=== PATIENT | female | born 1965 | race African-American/Black ===

== ENCOUNTER 2020-04-11 16:13 | Observation (INO) ==
[2020-04-11 16:59] LABS: Basophils % 0.2 % (0.0-0.8); Eosinophils # 0.1 10*3/uL (0.0-0.87); Hematocrit 36.7 VOL% (35.7-47.0); Hemoglobin 12.5 GM/DL (12.0-16.0); Immature Granulocytes % 0.6 %; Immature Granulocytes Absolute 0.05 #; Lymphocytes # 2.1 10*3/uL (1.4-4.0); Lymphocytes % 24.9 % (21.3-54.2); Mean Corpuscular HGB Conc 34.1 GM/DL (32-36); Mean Platelet Volume 10.6 FL (9.6-12.0); Monocytes % 6.8 % (1.7-12.7); Neutrophils % 66.5 % (38.7-73.9); Platelet Count 208 T/CUMM (130-400); Red Blood Count 4.17 MC/CUMM (3.8-5.5); Red Cell Distribution Width 13.7 % (9.3-17.3); White Blood Count 8.6 T/CUMM (4-12)
[2020-04-11 17:10] LABS: Calcium 9.8 MG/DL (8.5-10.1); Osmolality,Calculated 276.7 MOS/KG (273-304)
[2020-04-11] MEDS ORDERED: ENOXAPARIN 30 MG/0.3 ML SYRINGE SUBCUT STA (18:49)
[2020-04-11] MEDS ORDERED: ENOXAPARIN 80 MG/0.8 ML SYRINGE SUBCUT STA (18:52)
[2020-04-11] MEDS ORDERED: DOCUSATE SODIUM 100 MG CAPSULE PO PRN (19:44)
[2020-04-11] MEDS ORDERED: SIMETHICONE CHEW 125 MG TABLET PO PRN (19:44)
[2020-04-11] MEDS ORDERED: guaiFENesin/DM ER 600-30 MG TABLET PO PRN (19:44)
[2020-04-11] MEDS ORDERED: hydrALAZINE 20 MG/1 ML VIAL IV PRN (19:44)
[2020-04-11] MEDS ORDERED: ZALEPLON 5 MG CAPSULE PO PRN (19:44)
[2020-04-11] MEDS ORDERED: NICOTINE 21 MG/24 HR PATCH TRANSDERM PRN (19:44)
[2020-04-11] MEDS ORDERED: diphenhydrAMINE CAP 25 MG CAPSULE PO PRN (19:44)
[2020-04-11] MEDS ORDERED: DEXTROSE 50% 25 GM/50 ML VIAL IV PRN ×2 (19:44)
[2020-04-11] MEDS ORDERED: ALUMINUM/MAGNES/SIMETH MAX STR 30 ML UDCUP PO PRN (19:44)
[2020-04-11] MEDS ORDERED: GLUCAGON 1 MG VIAL IM PRN ×2 (19:44)
[2020-04-11] MEDS: ACETAMINOPHEN 325 MG TABLET PO PRN (20:55)
[2020-04-11] MEDS: INSULIN LISPRO 100 UNIT/ML SUBCUT SCH (22:35)
[2020-04-11] MEDS: OMEGA DHA EPA FISH OIL PO SCH (23:56)
[2020-04-12] MEDS: ALBUTEROL 2.5 MG/3 ML NEB RESP TX SCH ×4 (01:33→19:53)
[2020-04-12] MEDS: KETOROLAC 10 MG TABLET PO PRN ×2 (03:11→09:48)
[2020-04-12 06:16] LABS: Basophils % 0.5 % (0.0-0.8); Eosinophils # 0.1 10*3/uL (0.0-0.87); Eosinophils % 1.4 % (0.00-10.9); Hematocrit 33.7 VOL% (35.7-47.0); Hemoglobin 11.4 GM/DL (12.0-16.0); Immature Granulocytes % 0.5 %; Immature Granulocytes Absolute 0.03 #; Lymphocytes # 2.1 10*3/uL (1.4-4.0); Lymphocytes % 32.3 % (21.3-54.2); Mean Corpuscular HGB Conc 33.8 GM/DL (32-36); Mean Corpuscular Volume 88.7 FL (87-102); Monocytes % 9.6 % (1.7-12.7); Neutrophils % 55.7 % (38.7-73.9); Platelet Count 196 T/CUMM (130-400); Red Cell Distribution Width 13.7 % (9.3-17.3); White Blood Count 6.5 T/CUMM (4-12)
[2020-04-12 06:21] LABS: INR 1.1; PT Patient Result 11.8 SECS (9.8-11.9); Partial Thromboplastin Time 29.1 SECS (23.9-33.8)
[2020-04-12] MEDS ORDERED: POTASSIUM CHLORIDE 20 MEQ TABLET PO ONE (06:35)
[2020-04-12 06:44] LABS: Calcium 9.2 MG/DL (8.5-10.1); Osmolality,Calculated 276.5 MOS/KG (273-304)
[2020-04-12] MEDS: INSULIN LISPRO 100 UNIT/ML SUBCUT SCH ×4 (07:52→21:52)
[2020-04-12] MEDS ORDERED: ENOXAPARIN 80 MG/0.8 ML SYRINGE SUBCUT SCH (08:00)
[2020-04-12] MEDS: PANTOPRAZOLE 40 MG TABLET PO SCH (09:48)
[2020-04-12] MEDS: amLODIPine 5 MG TABLET PO SCH (09:48)
[2020-04-12] MEDS: POTASSIUM CHLORIDE 20 MEQ TABLET PO SCH (09:48)
[2020-04-12] MEDS: medroxyPROGESTERone 5 MG TABLET PO SCH (09:52)
[2020-04-12] MEDS: OMEGA DHA EPA FISH OIL PO SCH ×2 (09:52→21:52)
[2020-04-12] MEDS: ACETAMINOPHEN 325 MG TABLET PO PRN (13:42)
[2020-04-12] MEDS: APIXABAN 5 MG TABLET PO SCH (21:07)
[2020-04-13] MEDS: ALBUTEROL 2.5 MG/3 ML NEB RESP TX SCH ×4 (01:13→19:39)
[2020-04-13 06:05] LABS: Basophils % 0.6 % (0.0-0.8); Eosinophils # 0.1 10*3/uL (0.0-0.87); Eosinophils % 2.4 % (0.00-10.9); Hematocrit 31.3 VOL% (35.7-47.0); Hemoglobin 10.5 GM/DL (12.0-16.0); Immature Granulocytes % 0.6 %; Immature Granulocytes Absolute 0.03 #; Lymphocytes # 1.8 10*3/uL (1.4-4.0); Lymphocytes % 33.7 % (21.3-54.2); Mean Corpuscular HGB Conc 33.5 GM/DL (32-36); Mean Corpuscular Volume 89.9 FL (87-102); Mean Platelet Volume 10.4 FL (9.6-12.0); Monocytes % 11.8 % (1.7-12.7); Neutrophils % 50.9 % (38.7-73.9); Platelet Count 212 T/CUMM (130-400); Red Blood Count 3.48 MC/CUMM (3.8-5.5); Red Cell Distribution Width 13.7 % (9.3-17.3); White Blood Count 5.4 T/CUMM (4-12)
[2020-04-13 06:22] LABS: Calcium 8.9 MG/DL (8.5-10.1); Osmolality,Calculated 277.5 MOS/KG (273-304)
[2020-04-13] MEDS: INSULIN LISPRO 100 UNIT/ML SUBCUT SCH ×4 (08:37→21:32)
[2020-04-13] MEDS: APIXABAN 5 MG TABLET PO SCH ×2 (09:47→21:32)
[2020-04-13] MEDS: POTASSIUM CHLORIDE 20 MEQ TABLET PO SCH (09:48)
[2020-04-13] MEDS: amLODIPine 5 MG TABLET PO SCH (09:48)
[2020-04-13] MEDS: medroxyPROGESTERone 5 MG TABLET PO SCH (09:48)
[2020-04-13] MEDS: PANTOPRAZOLE 40 MG TABLET PO SCH (09:48)
[2020-04-13] MEDS: OMEGA DHA EPA FISH OIL PO SCH ×2 (10:02→21:32)
[2020-04-13 12:07] LABS: Hematocrit 32.5 VOL% (35.7-47.0)
[2020-04-13] MEDS: KETOROLAC 10 MG TABLET PO PRN (15:08)
[2020-04-13 19:40] LABS: Hematocrit 34.8 VOL% (35.7-47.0); Hemoglobin 11.5 GM/DL (12.0-16.0)
[2020-04-14] MEDS: ALBUTEROL 2.5 MG/3 ML NEB RESP TX SCH ×2 (00:29→07:55)
[2020-04-14 04:12] LABS: Hematocrit 31.4 VOL% (35.7-47.0); Hemoglobin 10.4 GM/DL (12.0-16.0)
[2020-04-14 04:32] LABS: Osmolality,Calculated 280.5 MOS/KG (273-304)
[2020-04-14] MEDS: POTASSIUM CHLORIDE 20 MEQ TABLET PO SCH (09:04)
[2020-04-14] MEDS: APIXABAN 5 MG TABLET PO SCH (09:04)
[2020-04-14] MEDS: PANTOPRAZOLE 40 MG TABLET PO SCH (09:04)
[2020-04-14] MEDS: amLODIPine 5 MG TABLET PO SCH (09:04)
[2020-04-14] MEDS: medroxyPROGESTERone 5 MG TABLET PO SCH (09:04)
[2020-04-14] MEDS: INSULIN LISPRO 100 UNIT/ML SUBCUT SCH ×2 (09:56→11:47)
[2020-04-14] MEDS: OMEGA DHA EPA FISH OIL PO SCH (11:07)
[2020-04-14 11:20] VITALS: BP 143/87
[2020-04-14 11:56] LABS: Hematocrit 33.7 VOL% (35.7-47.0); Hemoglobin 11.3 GM/DL (12.0-16.0)
[2020-04-15 11:21] LABS: Protein C Activity Plasma 126 % (70 - 150)
[2020-04-15 14:41] LABS: DRVVT Screen Ratio 1.32 ratio (<1.20); INR 1.3 (0.9-1.1)
[2020-04-15 22:26] LABS: Protein S Activity Plasma 130 % (65 - 160)
[2020-04-16 16:37] LABS: F5DNA Reviewed By SEE COMMENTS; Factor V Leiden (R506Q) Mutati Negative (Negative); PTNT Reviewed By SEE COMMENTS
[2020-04-17 10:53] LABS: DRVVT Confirmation 1.04 ratio (<1.20); PT Mix 1:1 (Mayo Reflex) 12.4 sec (9.4 - 12.5); Thrombin Time (Bovine), P 20.8 sec
== END 2020-04-14 12:55 | disposition home or self-care (01) ==
LOC: N.EDINP 16:13 → N.ED 16:13 → SUATTDRO 19:44 → N.3E 20:20
PROVIDERS: ADMIT Hospitalist; ATTEND Family Medicine